=== PATIENT | female | born 1995 | race Caucasian/White ===

== ENCOUNTER 2018-02-07 00:23 | Inpatient (IN) | payer MEDICAID ==
[2018-02-07 01:10] LABS: APPEARANCE,URINE SLIGHTLY-CLOUDY; BILIRUBIN,URINE NEGATIVE (NEGATIVE); COLOR,URINE YELLOW; GLUCOSE, URINE NEGATIVE (NEGATIVE); KETONES,URINE NEGATIVE (NEGATIVE); LEUKOCYTE ESTERASE,URINE NEGATIVE (NEGATIVE); NITRITE,URINE NEGATIVE (NEGATIVE); PROTEIN,URINE >=500 mg/dL (NEGATIVE); URINE SPECIFIC GRAVITY 1.025; UROBILINOGEN,URINE NEGATIVE mg/dL (<2.0)
[2018-02-07 01:26] LABS: URINE AMPHETAMINES SCREEN NEGATIVE; URINE BARBITURATES SCREEN NEGATIVE; URINE BENZODIAZEPINES SCREEN NEGATIVE; URINE COCAINE SCREEN NEGATIVE; URINE MARIJUANA (THC) SCREEN NEGATIVE; URINE METHADONE SCREEN NEGATIVE; URINE PHENCYCLIDINE SCREEN NEGATIVE
[2018-02-07] MEDS ORDERED: RINGERS SOLUTION,LACTATED 1,000 ML IV PRN (02:03)
--- NOTE | 2018-02-07 02:03 | Admission Physical ---
Datetime Report Generated by CPN: 02/07/2018 02:03 CURRENT ADMISSION Chief Complaint: Uterine Contractions Indication for Induction: Not Applicable Admit Impression : Term, Intrauterine ; Active Labor Admit Plan: Admit to Unit; Initiate Labor Protocol ALLERGIES Medication Allergies: Yes Medication Allergies: Penicillins (05/28/2016) Latex: No Latex Allergies OBSTETRICAL HISTORY : 4 Para: 1 Term: 1 : 0 SAB: 2 IAB: 0 Ectopic: 0 Livin Cesareans: 0 VBACs: 0 Multiple Births: 0 SEE RECORDS Alcohol: No Marijuana : No Cocaine: No Other Illicit Drugs: No Cigarettes: Never Smoker. [id number] PHYSICAL EXAM General: Normal HEENT: Normal Neurologic: Normal Thyroid: Normal Heart: Normal Lungs: Normal Breast: Deferred Back: Normal Abdomen: Normal Genitourinary Exam: Normal Extremities: Normal DTRs: Normal Pelvic Type: Adequate Vital Signs: Reviewed VAGINAL EXAM Dilatation: 7 Effacement: 80 Station: -1 MEMBRANES Pooling: Negative Membranes: Intact FETUS A Monitoring: External US FHR- Baseline: 130 Variability: Moderate 6-25bpm Decelerations: None FHR Category: Category I Presentation: Vertex Admit Comment: admit for labor, will prophylax for GBS PLANS FOR LABOR AND DELIVERY Labor and Delivery: None Pain Management: Natural Feeding Preference: Breast Benefit of Breast Feed Discussed: Yes Circumcision: N/A INFORMED CONSENT Signature: with User ID: [email or web address]
[2018-02-07 02:04] LABS: ABSOLUTE LYMPHOCYTES (AUTO) 1.2 10^3/uL (0.5-4.7); ABSOLUTE MONOCYTES (AUTO) 0.4 10^3/uL (0.1-1.4); ABSOLUTE NEUT (AUTO) 7.2 10^3/uL (1.7-8.2); BASOPHILS % (AUTO) 0.3 % (0-2); EOSINOPHILS % (AUTO) 0.3 % (0-6); HEMATOCRIT 27.2 % (36.0-47.0); HEMOGLOBIN 8.6 g/dL (12.0-15.5); LYMPHOCYTES % (AUTO) 13.9 % (13-45); MEAN CORPUSCULAR HEMOGLOBIN 22.6 pg (27.0-33.4); MEAN CORPUSCULAR HGB CONC 31.8 g/dL (32.0-36.0); MEAN CORPUSCULAR VOLUME 71 fl (80-97); MONOCYTES % (AUTO) 4.6 % (3-13); PLATELET COUNT 107 10^3/uL (150-450); RED BLOOD COUNT 3.81 10^6/uL (3.72-5.28); RED CELL DISTRIBUTION WIDTH 16.5 % (11.5-14.0); SEGMENTED NEUTROPHILS % (AUTO) 80.9 % (42-78); TOTAL CELLS COUNTED % (AUTO) 100 %; WHITE BLOOD COUNT 8.9 10^3/uL (4.0-10.5)
[2018-02-07] MEDS ORDERED: CEFAZOLIN 1 GM/D5W RTU 1 GM/50 ML RTUPB IV ONE ×2 (02:15→02:22)
[2018-02-07] MEDS ORDERED: LIDOCAINE 1% INJ-PF (10 MG/ML) 30 ML SDV ONE (02:22)
[2018-02-07] MEDS ORDERED: OXYTOCIN/NORMAL SALINE 20 UNIT/1,000 ML RTUINJ ONE (02:22)
[2018-02-07] MEDS ORDERED: MISOPROSTOL 0.2 MG TABLET ONE (02:22)
[2018-02-07 02:30] LABS: RUBELLA IGG ANTIBODY 3.47 IU/mL
[2018-02-07 02:31] LABS: RUBELLA INTERPRETATION NEGATIVE
[2018-02-07 02:38] LABS: CHLAM PCR NOT DETECTED (NOT DETECT); GON PCR NOT DETECTED (NOT DETECT)
[2018-02-07 02:45] LABS: URINE CREATININE 207.1 mg/dL (16-327); URINE PROTEIN 199.7 mg/dL (<12)
[2018-02-07 02:56] LABS: ALANINE AMINOTRANSFERASE 17 U/L (9-52); ALBUMIN 3.2 g/dL (3.5-5.0); ALKALINE PHOSPHATASE 183 U/L (38-126); ANION GAP 11 (5-19); ASPARTATE AMINO TRANSFERASE 23 U/L (14-36); BILIRUBIN,DIRECT 0.3 mg/dL (0.0-0.4); BILIRUBIN,TOTAL 0.3 mg/dL (0.2-1.3); BLOOD UREA NITROGEN 14 mg/dL (7-20); CALCIUM 8.3 mg/dL (8.4-10.2); CARBON DIOXIDE 20 mmol/L (22-30); CHLORIDE 110 mmol/L (98-107); GLUCOSE 88 mg/dL (75-110); LDH 489 U/L (313-618); POTASSIUM 3.7 mmol/L (3.6-5.0); SODIUM 140.5 mmol/L (137-145); TOTAL PROTEIN 6.1 g/dL (6.3-8.2); URIC ACID 5.5 mg/dL (2.5-6.2)
[2018-02-07] MEDS ORDERED: ACETAMINOPHEN 650 MG SUPP.RECT PR PRN (06:27)
[2018-02-07] MEDS ORDERED: PROMETHAZINE HCL 25 MG SUPP.RECT PR PRN (06:27)
[2018-02-07] MEDS ORDERED: DIBUCAINE 1% OINTMENT 28 GM TP PRN (06:27)
[2018-02-07] MEDS ORDERED: PROMETHAZINE HCL INJ 25 MG/1 ML VIAL IV PRN (06:27)
[2018-02-07] MEDS ORDERED: ACETAMINOPHEN WITH CODEINE #3 TABLET PO PRN ×2 (06:27)
[2018-02-07] MEDS ORDERED: DIPH/PERTUSS(ACELL)/TETANUS VAC/PF 0.5 ML SYR (>=10YO) IM PRN (06:27)
[2018-02-07] MEDS ORDERED: GLYCERIN/WITCH HAZEL LEAF 1 EACH MED..PAD TP PRN (06:27)
[2018-02-07] MEDS ORDERED: MEASLES,MUMPS&RUBELLA VACC/PF 0.5 ML VIAL SUBCUT PRN (06:27)
[2018-02-07] MEDS ORDERED: PROMETHAZINE HCL 25 MG TABLET PO PRN (06:27)
[2018-02-07] MEDS ORDERED: PSEUDOEPHEDRINE HCL 30 MG TABLET PO PRN (06:27)
[2018-02-07] MEDS ORDERED: ZOLPIDEM TARTRATE 5 MG TABLET PO PRN (06:27)
[2018-02-07] MEDS ORDERED: NA PHOS,M-B/NA PHOS,DI-BA (ADULT) 133 ML ENEMA PR PRN (06:27)
[2018-02-07] MEDS ORDERED: MAGNESIUM HYDROXIDE SUSP 30 ML UDCUP PO PRN (06:27)
[2018-02-07] MEDS ORDERED: DIPHENHYDRAMINE HCL 25 MG CAPSULE PO PRN (06:27)
[2018-02-07] MEDS ORDERED: OXYTOCIN/NORMAL SALINE 20 UNIT/1,000 ML RTUINJ IV PRN (06:27)
[2018-02-07] MEDS ORDERED: BENZOCAINE/MENTHOL AEROSOL SPRAY 56 ML TOP PRN (06:27)
[2018-02-07] MEDS ORDERED: MAGNESIUM SULFATE 20 GM/500 ML RTUINJ IV PRN ×2 (06:29→09:33)
[2018-02-07] MEDS ORDERED: MAGNESIUM SULFATE 4 GM/100 ML RTUPB IV ONE ×2 (06:30)
[2018-02-07] MEDS ORDERED: MAGNESIUM SULFATE 20 GM/500 ML RTUINJ IV ONE (06:31)
[2018-02-07] MEDS ORDERED: ACETAMINOPHEN WITH CODEINE #3 TABLET ONE (06:41)
[2018-02-07] MEDS ORDERED: IBUPROFEN 800 MG TABLET ONE ×2 (06:42→13:00)
[2018-02-07] MEDS ORDERED: PRENATAL VITAMIN W DHA CAPSULE PO ONE (09:12)
[2018-02-07] MEDS ORDERED: FAMOTIDINE 20 MG TABLET ONE (09:13)
[2018-02-07] MEDS ORDERED: DOCUSATE SODIUM 100 MG CAPSULE ONE ×2 (09:13→18:08)
[2018-02-07] MEDS ORDERED: SENNOSIDES/DOCUSATE 8.6-50 MG 1 EACH TABLET ONE (09:13)
[2018-02-07] MEDS ORDERED: FERROUS SULFATE 325 MG TABLET PO ONE ×2 (09:13→18:08)
[2018-02-07] MEDS: FERROUS SULFATE 325 MG TABLET PO SCH ×2 (09:15→18:10)
[2018-02-07] MEDS: PRENATAL VITAMIN W DHA CAPSULE PO SCH (09:15)
[2018-02-07] MEDS: FAMOTIDINE 20 MG TABLET PO SCH ×2 (09:16→22:04)
[2018-02-07] MEDS: SENNOSIDES/DOCUSATE 8.6-50 MG 1 EACH TABLET PO SCH (09:16)
[2018-02-07] MEDS: DOCUSATE SODIUM 100 MG CAPSULE PO SCH ×2 (09:17→18:10)
[2018-02-07 09:23] LABS: ABSOLUTE LYMPHOCYTES (AUTO) 0.8 10^3/uL (0.5-4.7); ABSOLUTE MONOCYTES (AUTO) 0.4 10^3/uL (0.1-1.4); ABSOLUTE NEUT (AUTO) 11.9 10^3/uL (1.7-8.2); BASOPHILS % (AUTO) 0.1 % (0-2); HEMATOCRIT 27.4 % (36.0-47.0); HEMOGLOBIN 8.6 g/dL (12.0-15.5); MEAN CORPUSCULAR HEMOGLOBIN 22.3 pg (27.0-33.4); MEAN CORPUSCULAR HGB CONC 31.5 g/dL (32.0-36.0); MEAN CORPUSCULAR VOLUME 71 fl (80-97); MONOCYTES % (AUTO) 2.8 % (3-13); PLATELET COUNT 111 10^3/uL (150-450); RED BLOOD COUNT 3.87 10^6/uL (3.72-5.28); RED CELL DISTRIBUTION WIDTH 16.2 % (11.5-14.0); SEGMENTED NEUTROPHILS % (AUTO) 91.1 % (42-78); TOTAL CELLS COUNTED % (AUTO) 100 %; WHITE BLOOD COUNT 13.1 10^3/uL (4.0-10.5)
[2018-02-07 09:35] LABS: ALANINE AMINOTRANSFERASE 15 U/L (9-52); ALBUMIN 2.7 g/dL (3.5-5.0); ALKALINE PHOSPHATASE 169 U/L (38-126); ANION GAP 6 (5-19); ASPARTATE AMINO TRANSFERASE 23 U/L (14-36); BILIRUBIN,DIRECT 0.3 mg/dL (0.0-0.4); BILIRUBIN,TOTAL 0.4 mg/dL (0.2-1.3); BLOOD UREA NITROGEN 9 mg/dL (7-20); CALCIUM 7.8 mg/dL (8.4-10.2); CARBON DIOXIDE 23 mmol/L (22-30); CHLORIDE 109 mmol/L (98-107); GLUCOSE 117 mg/dL (75-110); LDH 494 U/L (313-618); POTASSIUM 3.7 mmol/L (3.6-5.0); TOTAL PROTEIN 5.3 g/dL (6.3-8.2); URIC ACID 4.9 mg/dL (2.5-6.2)
[2018-02-07] MEDS ORDERED: CEFAZOLIN 1 GM/D5W RTU 1 GM/50 ML RTUPB IV SCH (10:00)
[2018-02-07] MEDS: IBUPROFEN 800 MG TABLET PO SCH ×2 (13:01→22:04)
--- NOTE | 2018-02-07 17:33 | Delivery Summary ---
Del Sum A-C Datetime Report Generated by CPN: 02/07/2018 17:33 DELIVERY PERSONNEL DELIVERY PERSONNEL: [id number] Delivery Doctor:: Deloris Prajapati MD Labor and Delivery Nurse:: Wendy Mays RNcoat operator Nurse:: Katie Bonilla RN Nursery Nurse:: Susan Dejesus RN Certified Neurodiagnostic Technologist/PERMIT AGENT: ST Jalen Certified Neurodiagnostic Technologist/PERMIT AGENT: Razia Bingham, ST MATERNAL INFORMATION Delivery Anesthesia: None Medications After Delivery: Pitocin Bolus-Please Comment; Pitocin Drip 20 Units/1000ml NSS Meds After Delivery Comment: NS with Pitocin 20 units Liter ivf bolus Estimated Blood Loss (ml): 250 Maternal Complications: Other Complication Details: no care LABOR SUMMARY EDC: 02/09/2018 00:00 No. Babies in Womb: 1 Attempted: No Labor Anesthesia: None LABOR INFORMATION Reason for Induction: Not Applicable Onset of Labor: 02/06/2018 16:30 Complete Dilatation: 02/07/2018 05:38 Oxytocin: N/A Group B Beta Strep: unk Antibiotics # of Doses: 1 Name of Antibiotic Given: Ancef 1 gram Steroids Given: None Reason Steroids Not Administered: Not Applicable MEMBRANES Membranes Rupture Method: Spontaneous Rupture of Membranes: 02/07/2018 05:37 Length of Rupture (hr): 0.13 Amniotic Fluid Color: Clear Amniotic Fluid Amount: Moderate Amniotic Fluid Odor: None STAGES OF LABOR Stage 1 hr: 13 Stage 1 min: 8 Stage 2 hr: 0 Stage 2 min: 7 Stage 3 hr: 0 Stage 3 min: 19 Total Time in Labor hr: 13 Total Time in Labor min: 34 VAGINAL DELIVERY Episiotomy: None Laceration #1: Perineal Laceration Extension #1: First Degree Laceration #2: None Laceration Extension #2: N/A Laceration #3: None Laceration Extension #3: N/A Laceration Repair: Yes Laceration Repair Note: repair of small perineal laceration with a 3-0 chromic suture Sponge Count Correct: N/A; Vaginal Sweep Performed Sharps Count Correct: Yes CSECTION DELIVERY Primary Indication: N/A Secondary Indication: N/A CSection Incidence: N/A Labor: N/A Elective: N/A CSection Incision: N/A BABY A INFORMATION Delivery Date/Time: 02/07/2018 05:45 Method of Delivery: Vaginal Born in Route : No : N/A Forceps: N/A Vacuum Extraction: N/A Shoulder Dystocia : No PRESENTATION/POSITION BABY A Presentation: Cephalic Cephalic Presentation: Vertex Vertex Position: Left Occipital Anterior with compound hand Breech Presentation: N/A PLACENTA INFORMATION BABY A Placenta Delivery Time : 02/07/2018 06:04 Placenta Method of Delivery: Expressed Placenta Status: Delivered SCORES BABY A Heart Rate 1 min: >100 bpm Resp Effort 1 min: Good Cry Reflex Irritability 1 min: Cough or Sneeze or Pulls Away Muscle Tone 1 min: Active Motion Color 1 min: Body Harold, Extremities Blue Resuscitation Effort 1 min: Tactile Stimulation SCORE 1 MIN: 9 Heart Rate 5 min: >100 bpm Resp Effort 5 min: Good Cry Reflex Irritability 5 min: Cough or Sneeze or Pulls Away Muscle Tone 5 min: Active Motion Color 5 min: Body Harold, Extremities Blue Resuscitation Effort 5 min: Tactile Stimulation SCORE 5 MIN: 9 INFORMATION BABY A Gestational Age at Delivery: 39.5 Gestational Status: Full Term- 39- 40.6 Weeks Infant Outcome : Liveborn Condition : Stable Sex: Female IDENTIFICATION BABY A Verification Date/Time: 02/07/2018 06:14 ID Band Number: [id number] Mother's Name Verified: Yes RN Verifying : NDoyle RN Additional Verifying Personnel: [facility] RN CORD INFORMATION BABY A No. Cord Vessels: 3 Nuchal Cord : Around Neck x1, Loose Cord Blood Taken: Yes-For Eval (Mom's Blood Type - or O+) Suction: Mouth; Nose ASSESSMENT BABY A Infant Complications: None Physical Findings at Delivery: Within Normal Limits Infant Respirations: Appears Normal Skin to Skin: Yes Care By: Javi RN Transferred To: Remains with Mother BABY B INFORMATION : N/A SIGNATURES Signature: with User ID: [email or web address]
--- NOTE | 2018-02-07 17:34 | Warning Signs in Babies ---
VOD Warning Signs Datetime Report Generated by [facility]: 02/07/2018 17:34 VOD#608 -Warning Signs in Babies: Needs to be viewed. (02/07/2018 00:34:Hillary Santoyo RN)
--- NOTE | 2018-02-07 17:34 | L&D Progress Notes ---
PROGRESS NOTES Datetime Report Generated by CPN: 02/07/2018 17:34 PROGRESS NOTE Impression: Eclampsia - Mild Plan: Continue Present Management Informed Consent Obtained: Risks, Benefits and Alternatives Discussed Comment: Pt with continued mild range BPs post delivery. She has been on Mag sulfate for 11 hours and with 2345ml out. 700ml then 300 then 400 now with approx 100ml out hourly. Will discontinue magnesium at 1800. Will start procardia XL 30mg. Transfer to floor and titrate BP meds if needed. VAGINAL EXAM Dilatation: 7 Effacement: 80 Station: -1 MEMBRANES Pooling: Negative Membranes: Intact FETUS A : 39.0 Presentation: Vertex SIGNATURE SIGNATURE: [id number] SIGNATURE: [id number] SIGNATURE: ,[id number] Signature: with User ID: Luis
[2018-02-07] MEDS ORDERED: NIFEDIPINE 30 MG TAB.ER.24 PO ONE (18:09)
[2018-02-07] MEDS: NIFEDIPINE 30 MG TAB.ER.24 PO SCH (18:09)
[2018-02-07 19:19] LABS: ALANINE AMINOTRANSFERASE 12 U/L (9-52); ALBUMIN 2.7 g/dL (3.5-5.0); ALKALINE PHOSPHATASE 161 U/L (38-126); ANION GAP 9 (5-19); ASPARTATE AMINO TRANSFERASE 22 U/L (14-36); BILIRUBIN,DIRECT 0.2 mg/dL (0.0-0.4); BILIRUBIN,TOTAL 0.3 mg/dL (0.2-1.3); BLOOD UREA NITROGEN 9 mg/dL (7-20); CALCIUM 7.7 mg/dL (8.4-10.2); CARBON DIOXIDE 21 mmol/L (22-30); CHLORIDE 107 mmol/L (98-107); GLUCOSE 94 mg/dL (75-110); LDH 590 U/L (313-618); POTASSIUM 3.9 mmol/L (3.6-5.0); SODIUM 136.9 mmol/L (137-145); TOTAL PROTEIN 5.1 g/dL (6.3-8.2); URIC ACID 4.7 mg/dL (2.5-6.2)
[2018-02-08] MEDS: IBUPROFEN 800 MG TABLET PO SCH ×3 (06:02→21:53)
[2018-02-08 06:55] LABS: HEMATOCRIT 27.4 % (36.0-47.0); HEMOGLOBIN 8.8 g/dL (12.0-15.5); MEAN CORPUSCULAR HEMOGLOBIN 22.5 pg (27.0-33.4); MEAN CORPUSCULAR VOLUME 71 fl (80-97); PLATELET COUNT 109 10^3/uL (150-450); RED BLOOD COUNT 3.88 10^6/uL (3.72-5.28); RED CELL DISTRIBUTION WIDTH 16.3 % (11.5-14.0); WHITE BLOOD COUNT 9.5 10^3/uL (4.0-10.5)
--- NOTE | 2018-02-08 07:45 | PDOC PROGRESS REPORT ---
Subjective-OB Progress Note for:: 02/08/18 Subjective: + flatus, + BM, decreasing lochia. tolerating po without difficulty. Breast/ bottle feeding. unsure re: control. No care. PreE. Off mag since 1800 on 02/07 Physical Exam (OB) Vital Signs: Temp Pulse Resp BP Pulse Ox 98.1 F 95 14 134/87 H 98 02/08/18 03:17 02/08/18 03:17 02/08/18 03:17 02/08/18 03:17 02/08/18 03:17 Intake & Output 02/07/18 02/08/18 02/09/18 06:59 06:59 06:59 Weight 74.6 kg - General General Appearance: Appears well, Alert In distress: None - PIH/Pre-Eclampsia DTR's: 1 + Clonus: Negative Headache: Present Epigastric Pain: No Visual Changes: No - Lochia Lochia Amount: Small 10-25 ml Lochia Color: Rubra/Red - Abdomen Description: Tender, Soft, Round Hernia Present: No Bowel Sounds: Normoactive Flatus Presence: Present Stool: Yes - per patient Fundal Description: Firm, Midline Fundal Height: u/u - u/2 - HEENT Head: Normocephalic, Atraumatic Mouth/Lips: Caries - Respiratory Respiratory Status: No respiratory distress Breath sounds: Clear Chest Palpation: Normal - Cardiovascular Rhythm: Regular Heart Sounds: S1 appreciated, S2 appreciated - Abdominal Inspection: Normal Organomegaly: No organomegaly - Psychological Associated symptoms: Normal affect Objective-Diagnostic Laboratory: 02/08/18 06:41 02/07/18 18:37 02/07/18 02/07/18 02/07/18 08:51 08:51 18:37 WBC 13.1 H RBC 3.87 Hgb 8.6 L Hct 27.4 L MCV 71 L MCH 22.3 L MCHC 31.5 L RDW 16.2 H Plt Count 111 L Seg Neutrophils % 91.1 H Lymphocytes % 6.0 L Monocytes % 2.8 L Eosinophils % 0.0 Basophils % 0.1 Absolute Neutrophils 11.9 H Absolute Lymphocytes 0.8 Absolute Monocytes 0.4 Absolute Eosinophils 0.0 Absolute Basophils 0.0 Sodium 138.0 136.9 L Potassium 3.7 3.9 Chloride 109 H 107 Carbon Dioxide 23 21 L Anion Gap 6 9 BUN 9 9 Creatinine 0.42 L 0.51 L Est GFR ( Amer) > 60 > 60 Est GFR (Non-Af Amer) > 60 > 60 Glucose 117 H 94 Uric Acid 4.9 4.7 Calcium 7.8 L 7.7 L Total Bilirubin 0.4 0.3 AST 23 22 ALT 15 12 Alkaline Phosphatase 169 H 161 H Total Protein 5.3 L 5.1 L Albumin 2.7 L 2.7 L 02/08/18 06:41 WBC 9.5 RBC 3.88 Hgb 8.8 L Hct 27.4 L MCV 71 L MCH 22.5 L MCHC 32.0 RDW 16.3 H Plt Count 109 L Seg Neutrophils % Lymphocytes % Monocytes % Eosinophils % Basophils % Absolute Neutrophils Absolute Lymphocytes Absolute Monocytes Absolute Eosinophils Absolute Basophils Sodium Potassium Chloride Carbon Dioxide Anion Gap BUN Creatinine Est GFR ( Amer) Est GFR (Non-Af Amer) Glucose Uric Acid Calcium Total Bilirubin AST ALT Alkaline Phosphatase Total Protein Albumin Assessment and Plan(PN) - Assessment and Plan (1) Preeclampsia Qualifiers: Trimester: unspecified trimester Qualified Code(s): O14.90 - Unspecified pre-eclampsia, unspecified trimester Is this a current diagnosis for this admission?: Yes Plan: S/p Magnesium sulfate - Mag sulfate discontinued at 1800 on 02/07. TALLEY resolved and patient denies Blurry vision/RUQ pain. Reviewed that will need to be monitored until tomorrow and may be able to go home tomorrow if BPs are stable. Continue with Procardia XL 30mg and will adjust as needed. (2) Limited care Qualifiers: Trimester: unspecified trimester Qualified Code(s): O09.30 - Supervision of with insufficient care, unspecified trimester Is this a current diagnosis for this admission?: Yes Plan: interstate planner placed for no care (3) Vaginal delivery Is this a current diagnosis for this admission?: Yes Plan: doing well. Lochia decreasing. Continue routine pp care - Time Spent with Patient Time with patient: 15-25 minutes Critical Time spent with patient: Less than 15 minutes Medications reviewed and adjusted accordingly: Yes - Disposition Anticipated Discharge: Home Within: within 48 hours
[2018-02-08] MEDS: FAMOTIDINE 20 MG TABLET PO SCH ×2 (10:14→21:52)
[2018-02-08] MEDS: PRENATAL VITAMIN W DHA CAPSULE PO SCH (10:15)
[2018-02-08] MEDS: SENNOSIDES/DOCUSATE 8.6-50 MG 1 EACH TABLET PO SCH (10:15)
[2018-02-08] MEDS: DOCUSATE SODIUM 100 MG CAPSULE PO SCH ×2 (10:15→18:22)
[2018-02-08] MEDS: FERROUS SULFATE 325 MG TABLET PO SCH ×2 (10:15→18:22)
[2018-02-08 10:26] LABS: HEPATITS B SURFACE ANTIGEN Negative (Negative)
[2018-02-08] MEDS: NIFEDIPINE 30 MG TAB.ER.24 PO SCH (18:22)
[2018-02-09] MEDS: IBUPROFEN 800 MG TABLET PO SCH ×2 (06:12→13:02)
--- NOTE | 2018-02-09 09:16 | PDOC DISCHARGE SUMMARY ---
Final Diagnosis Discharge Date: 02/09/18 - Final Diagnosis (1) Limited care Is this a current diagnosis for this admission?: Yes (2) Obstetrical laceration, first degree Is this a current diagnosis for this admission?: Yes (3) Preeclampsia Is this a current diagnosis for this admission?: Yes (4) Vaginal delivery Is this a current diagnosis for this admission?: Yes Discharge Data - Discharge Medication Home Medications: Vit Calc,Iron,Folic [ Vitamins] 1 tab PO DAILY 05/28/16 Ibuprofen [Motrin 800 mg Tablet] 800 mg PO Q8HP PRN #60 tablet 05/30/16 Reason(s) for Admission: Onset of Labor, Other Admission Note: Pre Eclampsia Procedures: NST, Management of Obstetric Complications Intrapartum Procedure(s): Spontaneous Vaginal Delivery Complication(s): Laceration-Perineal Laceration-Degree: 1st - Diagnosis Test Laboratory: Temp Pulse Resp BP Pulse Ox 98.3 F 83 16 130/61 H 99 02/09/18 07:34 02/09/18 07:34 02/09/18 00:20 02/09/18 07:34 02/09/18 07:34 02/07/18 02/07/18 02/07/18 00:39 01:20 08:51 RBC 3.81 3.87 Hgb 8.6 L 8.6 L Hct 27.2 L 27.4 L Urine Opiates Screen NEGATIVE 02/08/18 06:41 RBC 3.88 Hgb 8.8 L Hct 27.4 L Urine Opiates Screen - Discharge information/Instructions Discharge Activity: Balance Activity w/Rest, Pelvic Rest Discharge Diet: Regular Disposition: HOME, SELF-CARE Follow up with: [facility] in: 1, Weeks
[2018-02-09 09:21] LABS: ABSOLUTE EOSINOPHILS # (AUTO) 0.1 10^3/uL (0.0-0.6); ABSOLUTE LYMPHOCYTES (AUTO) 1.5 10^3/uL (0.5-4.7); ABSOLUTE MONOCYTES (AUTO) 0.4 10^3/uL (0.1-1.4); ABSOLUTE NEUT (AUTO) 8.4 10^3/uL (1.7-8.2); BASOPHILS % (AUTO) 0.3 % (0-2); EOSINOPHILS % (AUTO) 1.3 % (0-6); HEMATOCRIT 29.2 % (36.0-47.0); HEMOGLOBIN 9.3 g/dL (12.0-15.5); LYMPHOCYTES % (AUTO) 14.7 % (13-45); MEAN CORPUSCULAR HEMOGLOBIN 22.8 pg (27.0-33.4); MEAN CORPUSCULAR HGB CONC 31.9 g/dL (32.0-36.0); MEAN CORPUSCULAR VOLUME 71 fl (80-97); MONOCYTES % (AUTO) 3.7 % (3-13); PLATELET COUNT 117 10^3/uL (150-450); RED BLOOD COUNT 4.08 10^6/uL (3.72-5.28); RED CELL DISTRIBUTION WIDTH 16.4 % (11.5-14.0); TOTAL CELLS COUNTED % (AUTO) 100 %; WHITE BLOOD COUNT 10.5 10^3/uL (4.0-10.5)
[2018-02-09] MEDS: PRENATAL VITAMIN W DHA CAPSULE PO SCH (09:38)
[2018-02-09] MEDS: SENNOSIDES/DOCUSATE 8.6-50 MG 1 EACH TABLET PO SCH (09:39)
[2018-02-09] MEDS: FAMOTIDINE 20 MG TABLET PO SCH (09:39)
[2018-02-09] MEDS: DOCUSATE SODIUM 100 MG CAPSULE PO SCH (09:39)
[2018-02-09] MEDS: FERROUS SULFATE 325 MG TABLET PO SCH (09:39)
[2018-02-09 12:41] VITALS: BP 138/92
== END 2018-02-09 16:02 | disposition home or self-care (01) | DRG 775 ==
LOC: LC 00:23 → LR 02:03 → 2S 20:05
PROVIDERS: ADMIT Obstetrics & Gynecology; ATTEND Obstetrics & Gynecology
PROC: 10E0XZZ Delivery of Products of Conception, External Approach (ICD-10-PCS; principal; 2018-02-07)
PROC: 0HQ9XZZ Repair Perineum Skin, External Approach (ICD-10-PCS; 2018-02-07)
PROC: 4A1HXCZ Monitoring of Products of Conception, Cardiac Rate, External Approach (ICD-10-PCS; 2018-02-07)
DX: O14.94 Unspecified pre-eclampsia, complicating childbirth (principal); O70.0 First degree perineal laceration during delivery; O69.81X0 Labor and delivery complicated by cord around neck, without compression, not applicable or unspecified; Z88.0 Allergy status to penicillin; Z3A.39 39 weeks gestation of pregnancy; Z37.0 Single live birth
CPT/HCPCS: 36415; 80053; 80307; 81005; 82570; 83615; 84156; 84550; 85025; 85027; 86592; 86701; 86762; 86850; 86900; 86901; 87077; 87081; 87340; 87491; 87591; J0690; J2590; J3475; J3490